=== PATIENT | female | born 1965 | race Caucasian/White ===

== ENCOUNTER 2020-10-27 12:14 | Observation (INO) | payer MEDICARE ==
[2020-10-27 14:14] LABS: Hemoglobin 6.9 g/dL (12.0-16.0); Mean Corpuscular HGB CONC 31.1 g/dL (32.0-36.0); Mean Corpuscular Hemoglobin 34.3 pg (27.0-31.0); Platelet Count 70 thou/uL (130-400); Red Blood Cell (RBC) Count 2.02 mill/uL (4.20-5.40)
[2020-10-27 14:23] LABS: ALT (SGPT) 15 U/L (8-55); AST (SGOT) 39 U/L (5-34); Albumin 2.7 g/dL (3.5-5.0); Alkaline Phosphatase 200 U/L (40-110); Anion Gap 17 mmol/L (10-20); BUN (Urea Nitrogen) 69 mg/dL (9.8-20.1); Calc. Creatinine Clearance 0 mL/min (70-130); Calcium 7.9 mg/dL (7.8-10.44); Carbon Dioxide 24 mmol/L (22-29); Chloride 100 mmol/L (98-107); Globulin 4.7 g/dL (2.4-3.5); Glucose 104 mg/dL (70-105); Potassium 4.6 mmol/L (3.5-5.1); Protein, Total 7.4 g/dL (6.0-8.3); Sodium 136 mmol/L (136-145)
[2020-10-27 14:31] LABS: #Basophils 0.2 thou/uL (0.0-0.2); #Lymphocytes 1.3 thou/uL (1.20-3.40); #Monocytes 0.6 thou/uL (0.11-0.59); #Neutrophils 6.9 thou/uL (1.40-6.50); %Basophils 2.2 % (0.0-1.0); %Eosinophils 0.3 % (0.0-10.0); %Lymphocytes 14.7 % (21.0-51.0); %Monocytes 6.5 % (0.0-10.0); %Neutrophils 76.3 % (42.0-75.0); Anisocytosis MODERATE=16-30 cells (100X) (0-5/hpf); Basophilic Stippling SLIGHT = 1-2 cells (100X) (None Seen); Bite Cells SLIGHT = 2-5 cells (100X) (0-1/hpf); Eosinophils 1 % (0-10); Hypochromia MODERATE=16-30 cells (100X) (0-5/hpf); Lymphocytes 17 % (21-51); MDiff Complete? YES; Macrocytosis MODERATE=16-30 cells (100X) (0-5/hpf); Microcytosis SLIGHT = 6-15 cells (100X) (0-5/hpf); Monocytes 5 % (0-10); Neutrophil 77 % (42-75); Platelet Morphology Comment Appears Decreased; Polychromasia SLIGHT = 2-3 cells (100X) (0-2/hpf); Reflex for Review?? YES; Target Cells SLIGHT = 2-5 cells (100X) (0-1/hpf); Tear Drops SLIGHT = 2-5 cells (100X) (0-1/hpf)
[2020-10-27 14:40] LABS: CKMB 2.3 ng/mL (0-6.6)
[2020-10-27 17:34] LABS: Bilirubin Small (Negative); Blood, Urine Moderate (Negative); Clarity Hazy (Clear); Glucose, Urine (Dipstick) Negative (Negative); Ketone, Urine Negative (Negative); Leukocyte Negative (Negative); Nitrite Negative (Negative); Protein, Urine (Dipstick) 100 mg/dL (Neg-Trace); Specific Gravity, Urine 1.025 (1.005-1.030)
[2020-10-27 17:35] LABS: Bacteria/HPF 1+ HPF (None Seen); Squamous Epithelial 0-3 HPF (0-3); WBC/HPF 0-3 HPF (0-3)
--- NOTE | 2020-10-27 19:16 | CT ---
CT BRAIN WITHOUT CONTRAST: Date: 10-27-2020 FINDINGS: The ventricles are normal in size with no shift. No intracranial bleeding, mass or sign of acute stro ke was found. The paranasal sinuses are clear. The mastoid air cells are clear. IMPRESSION: No acute intracranial findings. Preliminary report called to Dr. Carver at 1553 on 10-27-2020. POS: HOME
[2020-10-27] MEDS ORDERED: Morphine 4 MG/ML VIAL ONE (20:05)
[2020-10-27] MEDS ORDERED: HYDROcodone/Acetaminophen 10/325 mg Tablet ONE (20:29)
--- NOTE | 2020-10-27 21:06 | RAD ---
PORTABLE CHEST: Date: 10-27-2020 An AP portable film at 1413 is submitted with no prior films available for comparison. FINDINGS: There are diffuse interstitial and alveolar infiltrates present, worse in the lower halves of the alice gs than the upper. The findings could be due to congestive failure but also due to superimposed infec tion. There is probably some small pleural effusions. The cardiac size is enlarged. A Mediport cathet er is seen entering on the right side. IMPRESSION: Diffuse interstitial and alveolar densities. See comments above. POS: HOME
[2020-10-27] MEDS ORDERED: Morphine 4 MG/ML VIAL SLOW IVP PRN (22:02)
[2020-10-27] MEDS ORDERED: Ondansetron PF 4 MG/2 ML Vial IVP PRN (22:15)
[2020-10-27] MEDS ORDERED: Sodium Chloride 0.9% 1,000 ML IV SCH (22:15)
[2020-10-27] MEDS ORDERED: Ondansetron ODT 4 MG TAB SL PRN (22:15)
[2020-10-28 02:10] LABS: SARS-CoV-2 MS2 Positive; SARS-CoV-2 N Gene Negative; SARS-CoV-2 S Gene Negative; SARS-CoV-2 by NAA Not Detected (NotDetected); SARS-CoV-2 orf1ab Negative
[2020-10-28] MEDS ORDERED: Cyclobenzaprine 10 MG TAB PO PRN (06:39)
[2020-10-28] MEDS ORDERED: HYDROcodone/Acetaminophen 10/325 mg Tablet PO PRN (06:39)
[2020-10-28] MEDS ORDERED: ALPRAZolam 0.5 MG TAB PO PRN (06:57)
--- NOTE | 2020-10-28 08:37 | HP ---
OBS ADMISSION AND DISCHARGE SUMMARY CHIEF COMPLAINT: Generalized weakness. HISTORY OF PRESENT ILLNESS: This is a 55-year-old female with a history of pancreatic cancer, status post Whipple procedure with subsequent spread of cancer to lung and breast. She has been followed by Dr. Salcedo at [facility], however, states last treatments for her condition have been at least 4 to 5 weeks prior. The patient presented to the [facility] Emergency Department with progressive weakness and compromised intake. Workup in the emergency department reveals numerous concerns including anemia with hemoglobin of 6.9, platelets 70, concern for acute on chronic renal failure with BUN at 69, creatinine at 3.18, and the GFR at 15, mildly elevated troponin at 0.121, and elevated BNP at 13,728. COVID testing was negative. Due to the patient's deconditioned state, it was not deemed safe for her to be able to return home. She was started on gentle IV hydration and admitted to the floor with plans to pursue a hospice consultation. PAST MEDICAL HISTORY: Includes pancreatic cancer with metastatic spread to breast and lung, chronic neck pain, anxiety, depression, congestive heart failure, chronic kidney disease, dyslipidemia, hypertension. PAST SURGICAL HISTORY: Includes , cervical diskectomy at C5 and C6, tubal ligation, Whipple procedure 07/2019, port placement for chemo to the right chest wall, and prior ablation. SOCIAL HISTORY: The patient is a chronic smoker of cigarettes. Denies EtOH. Prior marijuana use. ALLERGIES: INCLUDE SULFA. FAMILY HISTORY: A sister from history of pancreatic cancer. HOME MEDICATIONS: Include: 1. Lamictal 100 mg daily. 2. Vancomycin 2.5 mL p.o. q.6 hours. 3. Simvastatin at bedtime. 4. Shyla VALADEZ 24,000 units one capsule t.i.d. 5. Dix 1 tablet, 10-325 q.6 hours p.r.n. 6. Lasix 40 mg daily. 7. Flexeril 1 tab b.i.d. p.r.n. 8. Carvedilol 12.5 mg b.i.d. 9. Alendronate q.7 days. 10. Acyclovir 400 mg q.8 hours. 11. Alprazolam 1 mg t.i.d. p.r.n. 12. Trazodone 100 mg at bedtime. REVIEW OF SYSTEMS: GENERAL: The patient complains of fatigue. She denies fever. EAR, NOSE, AND THROAT: Denies sore throat, nasal drainage, or congestion. CARDIOVASCULAR: Denies chest pain or palpitations. RESPIRATORY: Denies cough or shortness of breath. GASTROINTESTINAL: Denies abdominal pain, nausea, vomiting, diarrhea, or constipation. GENITOURINARY: Denies dysuria. MUSCULOSKELETAL: Complains of joint pains. DERMATOLOGIC: Denies rash. NEURO: Denies headache. LABORATORY DATA: White blood cell count is 9.0, hemoglobin is 6.9, hematocrit is 22.3, platelets are 70. Sodium is 136, potassium 4.6, BUN is 69, creatinine 3.18, GFR is 15, AST 39, ALT 15, alkaline phosphatase 200. Troponin 0.121. BNP 13,728. Urine was negative for nitrites or leukocyte esterase. COVID testing was negative. IMAGING: On 10/27, brain CT scan showed no acute intracranial findings. On 10/27/2020, chest x-ray showed diffuse interstitial and alveolar densities. These could be due to congestive failure, but also due to superimposed infection. There are probably some small pleural effusions. MediPort catheter is seen entering on the right side. PHYSICAL EXAMINATION: VITAL SIGNS: Temperature is 98.1, pulse is 91, respiratory rate is 18, oxygen 95% on room air, blood pressure is 158/99. GENERAL: The patient is alert and oriented. She is in no acute distress. She has generalized weakness. HEAD, EYES, EARS, NOSE, AND THROAT: She is normocephalic and atraumatic with generalized swelling of the face. Extraocular muscles are intact bilaterally. She has dry mucous membranes. NECK: Supple without lymphadenopathy. CARDIOVASCULAR: Regular rate and rhythm. No murmurs, rubs, or gallops. Normal S1, S2. RESPIRATORY: Clear to auscultation bilaterally. No rhonchi, no rales. GASTROINTESTINAL: Soft, nontender to palpation. No rebound or guarding. SKIN: No rashes. EXTREMITIES: There is 1+ pitting edema to the bilateral lower extremities. MUSCULOSKELETAL: Generalized weakness. NEUROLOGIC: Nonfocal with cranial nerves 2 through 12 grossly intact. ASSESSMENT AND PLAN: 1. Metastatic pancreatic cancer. We will pursue hospice evaluation. Patient this morning voices request for DNAR status. 2. Dehydration. The patient received gentle IV fluids overnight. We will discontinue these today secondary to concern for potential volume overload. 3. Physical deconditioning, chronically worsening issue in regard to her underlying metastatic cancer. 4. Acute on chronic renal failure. Unknown baseline renal function for this patient, although she does report having chronic kidney disease, which I assume has been discussed per her labs obtained from followup with her oncologist. 5. Congestive heart failure. We will resume the patient's Lasix and beta- joe. 6. Macrocytic anemia. We will forego blood transfusion at this time, as I suspect she will be accepted into hospice care. Her renal function is likely playing a role in her anemia as well. 7. Code status is DNAR per patient request. 8. Disposition: As stated, we will pursue hospice evaluation and hopefully transition the patient to home under hospice care. DISCHARGE SUMMARY: Pt received IV fluids overnight and this was discontinued as of this morning. She was amenable to hospice evaluation; however, this was not able to be set up at her home. She has been accepted to [facility] for Palliative care, and will transition there at this time. Job ID: [id number] [id number]
[2020-10-28] MEDS ORDERED: Non-Formulary Item 1 EACH (Alendronate Sodium [Alendronate Sodium] 35 MG Tablet) PO SCH (09:00)
[2020-10-28] MEDS ORDERED: Carvedilol 6.25 MG TAB PO SCH (09:00)
[2020-10-28] MEDS ORDERED: Furosemide 40 MG TAB PO SCH (09:00)
[2020-10-28] MEDS ORDERED: lamoTRIgine 25 MG TAB PO SCH (09:00)
[2020-10-28] MEDS: Pancrelipase DR 12,000 1 CAP PO SCH ×3 (09:31→17:05)
[2020-10-28 12:52] VITALS: TEMP 98.4
[2020-10-28] MEDS: Vancomycin HCl 25 MG/ML Oral PO SCH ×2 (12:57→17:05)
[2020-10-28] MEDS ORDERED: Acyclovir 400 mg Tablet PO SCH (14:00)
[2020-10-28] MEDS ORDERED: Acyclovir 400 mg Tablet ONE (14:56)
[2020-10-28 16:49] VITALS: BP 115/90
[2020-10-28] MEDS ORDERED: Atorvastatin Calcium 10 MG TAB PO SCH (21:00)
[2020-10-28] MEDS ORDERED: traZODone HCl 50 MG TAB PO SCH (21:00)
== END 2020-10-28 18:35 ==
LOC: BURERS 12:14 → BURMED 19:11 → UNDOADMOB 19:11
PROVIDERS: ADMIT Family Medicine; ATTEND Family Medicine
DX: E86.0 Dehydration (principal); R53.81 Other malaise; F41.9 Anxiety disorder, unspecified; F32.9 Major depressive disorder, single episode, unspecified; I13.0 Hypertensive heart and chronic kidney disease with heart failure and stage 1 through stage 4 chronic kidney disease, or unspecified chronic kidney disease; N18.9 Chronic kidney disease, unspecified; I50.9 Heart failure, unspecified; E78.5 Hyperlipidemia, unspecified; G89.29 Other chronic pain; M54.2 Cervicalgia; D53.9 Nutritional anemia, unspecified; F17.210 Nicotine dependence, cigarettes, uncomplicated; Z79.899 Other long term (current) drug therapy; Z85.07 Personal history of malignant neoplasm of pancreas; Z88.5 Allergy status to narcotic agent; Z66 Do not resuscitate; Z20.828 Contact with and (suspected) exposure to other viral communicable diseases
CPT/HCPCS: 36415; 70450; 71045; 80053; 81003; 81015; 82553; 83880; 84484; 85025; 85060; 87635; 87804; 93005; 96374; G0378; J2270; U0003